=== PATIENT | male | born 1950 | race Caucasian/White ===

== ENCOUNTER → 2022-10-07 06:52 | Outpatient (CLI) | payer MEDICARE, OTHER, SELFPAY ==
[2022-10-07 07:24] LABS: Add Manual Diff / Slide Review NO; Basophils Absolute Auto 0 /uL (0-100); Basophils Percent Auto 0.8 % (0-2); Eosinophils Absolute Auto 100 /uL (0-450); Eosinophils Percent Auto 2.3 % (2-4); Hematocrit 42.2 % (41-53); Hemoglobin 14.6 g/dL (13.5-17.5); Lymphocytes Absolute Auto 1400 /uL (1100-4500); Lymphocytes Percent Auto 27.5 % (25-40); Mean Corpuscular HGB Conc 34.5 % (30-36); Mean Corpuscular Hemoglobin 32.5 PG (26-34); Mean Corpuscular Volume 94.4 fL (80-100); Monocytes Absolute Auto 700 /uL (0-900); Monocytes Percent Auto 12.5 % (3-14); Neutrophils Absolute Auto 3000 /uL (1500-7000); Neutrophils Percent Auto 56.9 % (50-75); Platelet Count 274 X10^3/uL (150-400); Red Blood Cell Count 4.47 X10^6/uL (4.5-5.9); Red Cell Distribution Width 12.6 % (11.6-14.8); White Blood Cell Count 5.2 X10^3/uL (4.5-11.0)
[2022-10-07 08:01] LABS: Alanine Aminotransferase 34 IU/L (<50); Albumin Globulin Ratio 1.4 (1.0-2.8); Alkaline Phosphatase 77 U/L (38-126); Aspartate Aminotransferase 34 IU/L (17-59); Blood Urea Nitrogen 11 mg/dL (9-20); Calcium 9.3 mg/dL (8.4-10.2); Carbon Dioxide 24 mmol/L (22-32); Chloride 105 mmol/L (98-107); Cholesterol 247 mg/dL (140-199); Estimated Glomerular Filt Rate > 60 mL/min (>60); Globulin 2.8 g/dL (1.7-4.1); Glucose 117 mg/dL (80-110); HDL Cholesterol 62 mg/dL (40-60); HEMOLYSIS < 15 (0-50); LDL Cholesterol Calculated 158 mg/dL (<100); Potassium 4.3 mmol/L (3.4-5.1); Sodium 137 mmol/L (137-145); Total Protein 6.8 g/dL (6.3-8.2); Triglycerides 135 mg/dL (35-150)
[2022-10-07 08:29] LABS: TSH w/ Reflex to FT4 2.16 uIU/mL (0.47-4.68)
[2022-10-07 08:38] LABS: Hemoglobin A1C% w Est Avg Glu 5.6 % (4.0-6.0)
[2022-10-07 15:17] LABS: Creatinine Urine Random 172.1 mg/dL
[2022-10-07 15:25] LABS: Microalbumi Creatinin Ratio Ur 4.6 ug/mg CR (<30); Microalbumin Urine Random 0.8 mg/dL (0-1.6)
== END ==
PROVIDERS: PCP Family Medicine; Referring Provider Family Medicine; Visit Provider Family Medicine
DX: E11.9 Type 2 diabetes mellitus without complications (principal); I10 Essential (primary) hypertension
CPT/HCPCS: 36415; 80053; 80061; 82043; 82570; 83036; 84443; 85025